=== PATIENT | female | born 1955 | race Caucasian/White ===

== ENCOUNTER 2019-09-27 21:11 | Emergency (ER) | payer BC, SELFPAY ==
[2019-09-27] MEDS ORDERED: KETOROLAC 30 MG/ML INJ ONE (21:55)
[2019-09-27 22:03] LABS: Urine Blood NEGATIVE (NEG); Urine Glucose NEGATIVE (NEG); Urine Protein NEGATIVE (NEG); Urine Specific Gravity 1.015 (1.005-1.030)
--- NOTE | 2019-09-27 22:44 | RAD REPORT ---
EXAM DESCRIPTION: CT - Abdomen Pelvis Wo Contrast - 09/27/2019 10:15 pm CLINICAL HISTORY: ABD PAIN COMPARISON: No comparisonsNo comparisons TECHNIQUE: Axial [address] imaging of the abdomen and pelvis was performed without IV contrast. No IV contrast was given because of allergy, abnormal renal function, patient refusal or physician re quest. No oral contrast. All CT scans are performed using dose optimization technique as appropriate and may include automated exposure control or mA/KV adjustment according to patient size. FINDINGS: No suspicious findings in the lung bases. The liver, spleen and pancreas show no suspicious findings on non-contrast imaging. Cholecystectomy c lips present. No biliary tree dilatation. No hydronephrosis or suspicious renal mass. No significant adrenal finding. Isodense renal masses an d pyelonephritis cannot be excluded in the absence of IV contrast. The urinary bladder is without sig nificant finding. Uterus and ovaries show no suspicious findings. No dilated bowel loops or bowel wall thickening. No free air, free fluid or inflammatory stranding. No hernia, mass or bulky lymphadenopathy. No fracture or acute bony finding. Advanced degenerative change involves the L5-S1 disc space. Promin ent facet joint degenerative change present at L4-5. IMPRESSION: Non-contrast enhanced CT abdomen and pelvis imaging show no acute or emergent finding. Advanced degenerative change at the L4-5 facet joints and L5-S1 disc space. Full assessment is limited is the absence of IV contrast.
--- NOTE | 2019-09-27 22:54 | EDPHYS ---
Physician Documentation [facility] Name: Nicky Allen Age: 64 yrs Sex: Female : 1955 Arrival Date: 09/27/2019 Time: 21:18 Bed 8 Private MD: PIEDAD Physician Ricci Day HPI: 09/27 05:40 This 64 yrs old Female presents to ER via Ambulatory with complaints of Leg tw4 Pain, Back Pain, Groin Pain. 05:40 The patient presents with a history of running out of pain medications, pain. tw4 05:41 The patient presents with pain and decreased range of motion, and tenderness. The tw4 symptoms are located in the low back. Onset: The symptoms/episode began/occurred 3 month(s) ago. The pain does not radiate. Associated signs and symptoms: The patient has no apparent associated signs or symptoms. Modifying factors: The patient symptoms are alleviated by nothing, the patient symptoms are aggravated by nothing. The patient has not experienced similar symptoms in the past. Historical: - Allergies: 09/26 21:30 Celery (Apium Graveolens) (Umbelliferae); ll1 21:30 bayleaf; ll1 - PMHx: 21:30 stroke; Hypertension; borderline diabetes; back problems; Hernia; ll1 - PSHx: 21:30 Appendectomy; Cholecystectomy; Tubal ligation; ll1 - Immunization history:: Flu vaccine is not up to date. - Social history:: Smoking status: Patient reports the use of cigarette tobacco products, smokes one-half pack cigarettes per day, Patient/guardian denies using alcohol, street drugs. ROS: 09/27 05:41 Constitutional: Negative for fever, chills, and weight loss, Eyes: Negative for injury, tw4 pain, redness, and discharge, Cardiovascular: Negative for chest pain, palpitations, and edema, Respiratory: Negative for shortness of breath, cough, wheezing, and pleuritic chest pain, Abdomen/GI: Negative for abdominal pain, nausea, vomiting, diarrhea, and constipation, Back: Negative for injury and pain, Skin: Negative for injury, rash, and discoloration, Neuro: Negative for headache, weakness, numbness, tingling, and seizure. Exam: 05:41 Constitutional: This is a well developed, well nourished patient who is awake, alert, tw4 and in no acute distress. Head/Face: Normocephalic, atraumatic. Eyes: Pupils equal round and reactive to light, extra-ocular motions intact. Lids and lashes normal. Conjunctiva and sclera are non-icteric and not injected. Cornea within normal limits. Periorbital areas with no swelling, redness, or edema. Chest/axilla: Normal chest wall appearance and motion. Nontender with no deformity. No lesions are appreciated. Cardiovascular: Regular rate and rhythm with a normal S1 and S2. No gallops, murmurs, or rubs. Normal PMI, no JVD. No pulse deficits. Respiratory: Lungs have equal breath sounds bilaterally, clear to auscultation and percussion. No rales, rhonchi or wheezes noted. No increased work of breathing, no retractions or nasal flaring. Abdomen/GI: Soft, non-tender, with normal bowel sounds. No distension or tympany. No guarding or rebound. No evidence of tenderness throughout. Back: No spinal tenderness. No costovertebral tenderness. Full range of motion. MS/ Extremity: Pulses equal, no cyanosis. Neurovascular intact. Full, normal range of motion. Neuro: Awake and alert, GCS 15, oriented to person, place, time, and situation. Cranial nerves II-XII grossly intact. Motor strength 5/5 in all extremities. Sensory grossly intact. Cerebellar exam normal. Normal gait. Vital Signs: 09/26 21:22 BP 172 / 85; Pulse 86; Resp 18; Temp 98.6; Pulse Ox 99% ; Weight 84.82 kg; Height 5 ft. ll1 6 in. (167.64 cm); Pain 2/10; 23:03 BP 169 / 92; Pulse 85; Resp 17 S; Pulse Ox 98% on R/A; jd3 21:22 Body Mass Index 30.18 (84.82 kg, 167.64 cm) ll1 MDM: 21:43 Patient medically screened. tw4 09/27 05:44 Differential diagnosis: Pyelonephritis Renal Infarction vertebral fracture. Data tw4 reviewed: vital signs, nurses notes. Data interpreted: Pulse oximetry: Interpretation: normal. Counseling: I had a detailed discussion with the patient and/or guardian regarding: the historical points, exam findings, and any diagnostic results supporting the discharge/admit diagnosis. Special discussion: I discussed with the patient/guardian in detail that at this point there is no indication for admission to the hospital. It is understood, however, that if the symptoms persist or worsen the patient needs to return immediately for re-evaluation. 05:45 Data reviewed: lab test result(s), urinalysis, radiologic studies, CT scan. Test tw4 interpretation: by ED physician or midlevel provider: not applicable. 09/26 21:48 Order name: Urine Dipstick--Ancillary (enter results) [facility] 09/26 21:48 Order name: Urine Culture [facility] 09/26 21:54 Order name: CT Abd/Pelvis - Without Contrast; Complete Time: 22:50 tw4 Administered Medications: 09/26 21:54 Drug: TORadol 30 mg Route: IM; Site: right gluteus; ea 22:50 Follow up: Response: No adverse reaction jd3 Disposition: 09/27/19 22:53 Discharged to Home. Impression: Low back pain, Sprain of ligaments of lumbar spine, Other intervertebral disc degeneration, lumbosacral region. - Condition is Stable. - Discharge Instructions: Back Pain, Adult, Chronic Back Pain, Musculoskeletal Pain, Back Injury Prevention, [id number], Degenerative Disk Disease. - Prescriptions for Ibuprofen 800 mg Oral Tablet - take 1 tablet by ORAL route every 8 hours As needed take with food; 30 tablet. Cyclobenzaprine 10 mg Oral Tablet - take 1 tablet by ORAL route every 8 hours As needed; 30 tablet. Tramadol 50 mg Oral Tablet - take 1 tablet by ORAL route every 8 hours as needed; 12 tablet. - Medication Reconciliation Form, Thank You Letter, Antibiotic Education, Prescription Opioid Use form. - Follow up: Private Physician; When: Upon discharge from the Emergency Department; Reason: Recheck today's complaints, Continuance of care, Re-evaluation by your physician. - Problem is new. - Symptoms have improved. Signatures: Dispatcher [employer] EDMS Claudia Diaz RN RN ea Davies, Jonathon, RN RN jRicci Alatorre MD MD tw4 Radha Deal RN RN ll1 Corrections: (The following items were deleted from the chart) 23:05 22:53 09/27/2019 22:53 Discharged to Home. Impression: Low back pain; Sprain of jd3 ligaments of lumbar spine; Other intervertebral disc degeneration, lumbosacral region. Condition is Stable. Forms are Medication Reconciliation Form, Thank You Letter, Antibiotic Education, Prescription Opioid Use. Follow up: Private Physician; When: Upon discharge from the Emergency Department; Reason: Recheck today's complaints, Continuance of care, Re-evaluation by your physician. Problem is new. Symptoms have improved. tw4
--- NOTE | 2019-09-27 22:54 | ER ---
Nurse's Notes [facility] Name: Nicky Allen Age: 64 yrs Sex: Female : 1955 Arrival Date: 09/27/2019 Time: 21:18 Bed 8 Private MD: Diagnosis: Low back pain;Sprain of ligaments of lumbar spine;Other intervertebral disc degeneration, lumbosacral region Presentation: 09/26 21:22 Chief complaint: Patient states: Low back pain that wraps around into both sides of ll1 groin for past 3 months. Reports dysuria and frequency with urination for 4 days. No fever. Coronavirus screen: Proceed with normal triage. Patient reports a cough. Patient denies shortness of breath or difficulty breathing. Patient denies measured and/or subjective temperature greater than 100.4F prior to today's visit. Patient denies travel on a cruise ship or to a country the [facility] currently lists as an affected area. Patient denies contact with known and/or suspected case of COVID-19. "COPD cough". Ebola Screen: Patient denies travel to an Ebola-affected area in the 21 days before illness onset. Initial Sepsis Screen: Does the patient meet any 2 criteria? No. Patient's initial sepsis screen is negative. Risk Assessment: Do you want to hurt yourself or someone else? Patient reports no desire to harm self or others. Onset of symptoms was June 23, 2019. 21:22 Method Of Arrival: Ambulatory ll1 21:22 Acuity: IZZY 3 ll1 21:50 Initial Sepsis Screen: Does the patient have a suspected source of infection? No. jd3 Patient's initial sepsis screen is negative. Historical: - Allergies: 21:30 Celery (Apium Graveolens) (Umbelliferae); ll1 21:30 bayleaf; ll1 - PMHx: 21:30 stroke; Hypertension; borderline diabetes; back problems; Hernia; ll1 - PSHx: 21:30 Appendectomy; Cholecystectomy; Tubal ligation; ll1 - Immunization history:: Flu vaccine is not up to date. - Social history:: Smoking status: Patient reports the use of cigarette tobacco products, smokes one-half pack cigarettes per day, Patient/guardian denies using alcohol, street drugs. Screenin:49 Abuse screen: Denies threats or abuse. Nutritional screening: No deficits noted. jd3 Tuberculosis screening: No symptoms or risk factors identified. Fall Risk Ambulatory Aid- None/Bed Rest/Nurse Assist (0 pts). Gait- Normal/Bed Rest/Wheelchair (0 pts) Mental Status- Oriented to own ability (0 pts). Total Mora Fall Scale indicates No Risk (0-24 pts). Assessment: 21:48 General: Appears in no apparent distress. uncomfortable, Behavior is calm, cooperative, jd3 appropriate for age. Pain: Complains of pain in low back area Pain radiates to suprapubic area, right leg and left leg Quality of pain is described as aching. Neuro: Level of Consciousness is awake, alert, obeys commands, Oriented to person, place, time, situation. Cardiovascular: Denies chest pain, Capillary refill < 3 seconds Patient's skin is warm and dry. Respiratory: Airway is patent Respiratory effort is even, unlabored, Respiratory pattern is regular, symmetrical, Denies cough, shortness of breath. GI: No signs and/or symptoms were reported involving the gastrointestinal system. Patient currently denies constipation, diarrhea, nausea, vomiting. : Urine is clear, Reports burning with urination, urgency, urinary frequency. EENT: No signs and/or symptoms were reported regarding the EENT system. Derm: Skin is intact, Skin is dry, Skin is normal, Skin temperature is warm. Musculoskeletal: Circulation, motion, and sensation intact. Range of motion: intact in all extremities. 22:18 Reassessment: Patient appears in no apparent distress at this time. No changes from jd3 previously documented assessment. Patient and/or family updated on plan of care and expected duration. Pain level reassessed. Patient is alert, oriented x 3, equal unlabored respirations, skin warm/dry/pink. pt back form CT, awaiting results. 23:02 Reassessment: Patient appears in no apparent distress at this time. Patient and/or jd3 family updated on plan of care and expected duration. Pain level reassessed. Patient is alert, oriented x 3, equal unlabored respirations, skin warm/dry/pink. pt reporting continued pain, provider notified, no new orders at this time. even and steady gait upon discharge, pt reporting understanding of discharge instructions. Vital Signs: 21:22 BP 172 / 85; Pulse 86; Resp 18; Temp 98.6; Pulse Ox 99% ; Weight 84.82 kg; Height 5 ft. ll1 6 in. (167.64 cm); Pain 2/10; 23:03 BP 169 / 92; Pulse 85; Resp 17 S; Pulse Ox 98% on R/A; jd3 21:22 Body Mass Index 30.18 (84.82 kg, 167.64 cm) ll1 ED Course: 21:18 Patient arrived in ED. cf2 21:20 Ricci Day MD is Attending Physician. tw4 21:27 Triage completed. ll1 21:30 Arm band placed on Patient placed in an exam room, on a stretcher. ll1 21:40 Parish Mesa RN is Primary Nurse. jd3 21:49 Patient has correct armband on for positive identification. Bed in low position. Call jd3 light in reach. Side rails up X 1. Pulse ox on. NIBP on. 22:16 CT Abd/Pelvis - Without Contrast In Process Unspecified. EDMS 23:04 No provider procedures requiring assistance completed. Patient did not have IV access jd3 during this emergency room visit. Administered Medications: 21:54 Drug: TORadol 30 mg Route: IM; Site: right gluteus; ea 22:50 Follow up: Response: No adverse reaction jd3 Outcome: 22:53 Discharge ordered by . tw4 23:04 Discharged to home ambulatory, with family. jd3 23:04 Condition: stable 23:04 Discharge instructions given to patient, Instructed on discharge instructions, follow up and referral plans. medication usage, Demonstrated understanding of instructions, follow-up care, medications, Prescriptions given X 3. 23:05 Patient left the ED. jd3 Signatures: Dispatcher [employer] EDMS Claudia Diaz RN Parish García ea, RN LYDIA jRicci Alatorre MD MD [address] [place] cf2 Radha Deal RN RN 1
[2019-09-27 23:11] VITALS: TEMP 98.6
[2019-09-27 23:13] VITALS: BP 169/92; O2SAT 98
== END 2019-09-27 23:05 | disposition home or self-care (01) ==
LOC: ER 21:11
DX: S33.5XXA Sprain of ligaments of lumbar spine, initial encounter (principal); F17.210 Nicotine dependence, cigarettes, uncomplicated; I10 Essential (primary) hypertension; Z88.8 Allergy status to other drugs, medicaments and biological substances
CPT/HCPCS: 74176; 81003; 87086; 87088; 96372; 99284

== ENCOUNTER 2019-10-12 10:35 | Observation (INO) | payer SELFPAY ==
[2019-10-12 17:02] VITALS: BMI 30.3
[2019-10-13 13:02] VITALS: BP 146/67; TEMP 98
[2019-10-13 14:39] VITALS: O2SAT 94
== END 2019-10-13 16:04 | disposition home or self-care (01) ==
LOC: ER 10:35 → ERHOLD 14:47 → 2ND 15:57
PROVIDERS: ADMIT Family Medicine; ATTEND Family Medicine
PROC: 30233N1 Transfusion of Nonautologous Red Blood Cells into Peripheral Vein, Percutaneous Approach (ICD-10-PCS; principal; 2019-10-12)
DX: D50.0 Iron deficiency anemia secondary to blood loss (chronic) (principal); I65.21 Occlusion and stenosis of right carotid artery; I10 Essential (primary) hypertension; J44.9 Chronic obstructive pulmonary disease, unspecified; K21.9 Gastro-esophageal reflux disease without esophagitis; Z86.73 Personal history of transient ischemic attack (TIA), and cerebral infarction without residual deficits; F17.210 Nicotine dependence, cigarettes, uncomplicated; Z79.1 Long term (current) use of non-steroidal anti-inflammatories (NSAID); G89.29 Other chronic pain; M54.9 Dorsalgia, unspecified
CPT/HCPCS: 36415; 70450; 70544; 70549; 70553; 72125; 80048; 80061; 82550; 82553; 82607; 82728; 83540; 83735; 84439; 84443; 84466; 84484; 85014; 85018; 85025; 86850; 86900; 86901; 93005; 93306; 93880; 99285; A9577; C9113; G0378; J1940; J7030; P9016